=== PATIENT | male | born 1970 | race Caucasian/White ===

== ENCOUNTER 2017-03-11 08:32 | Emergency (ER) | payer SELFPAY ==
[2017-03-11] MEDS ORDERED: DIPH,PERTUSS(ACELL),TET VAC/PF 0.5 ML DISP.SYRIN IM ONE (08:47)
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
[2017-03-11] MEDS ORDERED: fentaNYL CITRATE/PF 100 MCG/ 2ML AMP ONE (09:04)
[2017-03-11] MEDS ORDERED: fentaNYL CITRATE/PF 100 MCG/ 2ML AMP IM ONE ×2 (09:04→10:01)
[2017-03-11 10:53] VITALS: BP 158/111
--- NOTE | 2017-03-11 13:57 | Diagnostic Imaging Report ---
FELICITAS BRISENO [facility] [id number] [facility] [address] [address] Report Submission Date: Mar 11, 2017 9:50:46 AM ELECTROCHEMIST Patient Study Name: JESUS SHEEHAN Date: Mar 11, 2017 9:01:30 AM ELECTROCHEMIST Modality Type: CR Gender: M Description: UPPER EXTREMITY : 70 Institution: [facility] Physician: FELICITAS BRISENO Examination: Plain film elbow History: Injury Comparison exams: None provided Findings: 3 views of the elbow demonstrate normal cortical margins. No fracture. No dislocation. Radial head is within normal limits. No joint effusion Impression: No acute osseous abnormality. Electronically signed on Mar 11, 2017 9:50:46 AM ELECTROCHEMIST by: Kwame ALEGRIA
--- NOTE | 2017-03-11 13:58 | Diagnostic Imaging Report ---
FELICITAS BRISENO [facility] [address] [facility] [address] Report Submission Date: Mar 11, 2017 9:49:48 AM CHEMICAL TESTER Patient Study Name: JESUS SHEEHAN Date: Mar 11, 2017 9:11:30 AM CHEMICAL TESTER Modality Type: CR Gender: M Description: LOWER EXTREMITY : 70 Institution: [facility] Physician: FELICITAS BRISENO Examination: Plain film knee History: Knee discomfort Findings: 3 views of the knee demonstrates normal cortical margins. No fracture. No dislocation. No joint effusion. Anterior soft tissue swelling Impression: No acute osseous abnormality. Anterior soft tissue swelling. Electronically signed on Mar 11, 2017 9:49:48 AM CHEMICAL TESTER by: Kwame ALEGRIA
== END 2017-03-11 10:40 | disposition home or self-care (01) ==
LOC: ED 08:32
DX: M25.462 Effusion, left knee (principal); V28.4XXA Motorcycle driver injured in noncollision transport accident in traffic accident, initial encounter; Y93.9 Activity, unspecified; Y99.9 Unspecified external cause status; R73.9 Hyperglycemia, unspecified; I10 Essential (primary) hypertension
CPT/HCPCS: 73080; 73562; 90715; J3010; 90471; 96372; 99283